=== PATIENT | male | born 1995 | race Caucasian/White ===

== ENCOUNTER 2023-09-09 12:52 | Outpatient (CLI) | payer OTHER, SELFPAY ==
--- NOTE | ~2023-09-09 | US_ITS ---
EXAMINATION: US soft tissue upper back DATE: 09/09/2023 13:24 INDICATION: Localized swelling, mass or lump at the left upper back medial to the scapula TECHNIQUE: Multiple grayscale and Doppler ultrasound images of the region of concern at the superomed ial posterior left chest wall were obtained. COMPARISON: None FINDINGS: No discrete masses or fluid collections are visualized on the provided imaging. On real-time imaging there is a clearly discernible asymmetry with increased prominence of the subcutaneous tissues at the region of concern. A clearly defined distinction between a suspected mass in the surrounding soft ti ssues however was unable be identified. IMPRESSION: 1. No definitive correlate identified for the clearly discernible masslike increased prominence of th e subcutaneous tissues at the superomedial posterior left chest wall. Would recommend further evaluat ion with either CT or pre and postcontrast MRI. Reviewed, dictated and finalized at location B. IMPRESSION: 1. No definitive correlate identified for the clearly discernible masslike incr eased prominence of the subcutaneous tissues at the superomedial posterior left chest wall. Would recommend further evaluation with either CT or pre and postc ontrast MRI.
== END 2023-09-09 12:53 ==
LOC: MICIMG 12:53
PROVIDERS: PCP Surgery; Visit Provider Surgery
DX: R22.2 Localized swelling, mass and lump, trunk (principal)
CPT/HCPCS: 76604

== ENCOUNTER 2023-10-07 15:08 | Outpatient (CLI) | payer OTHER, SELFPAY ==
--- NOTE | ~2023-10-07 | CT_ITS ---
EXAMINATION: CT soft tissue neck wo con DATE: 10/07/2023 15:31 INDICATION: Left upper back mass near the medial scapula and base of the neck TECHNIQUE: Computed tomography (CT) of the neck was performed with 75 mL Omnipaque-350 intravenous co ntrast. Automated exposure control and iterative reconstruction technique were employed. The dose-subha gth product was 627.33 mGy-cm. COMPARISON: None FINDINGS: There is a large macroscopic fat attenuation mass at the left posterior neck and upper back which ritesh ears centered in the fascial plane between the left trapezius and levator scapulae muscles consistent with a lipoma. The lipoma measures 19.7 cm craniocaudally, 12.0 cm anteroposteriorly and 13.5 cm med ial to lateral. The mass stretches and posteriorly bulges the more superficial trapezius muscle. Ther e is also anterior protrusion of the mass at the base of the neck which extends to within 1.3 cm of t he posterior margin of the left clavicle. There are few vessels and nearly indiscernible septations s cattered throughout the lipoma. No other discrete nonadipose soft tissue component appreciated to sug gest malignancy. No other abnormal masses or fluid collections identified. Submandibular and parotid glands are symmet quang. Thyroid gland is unremarkable. There are scattered normal-sized lymph nodes in the neck, no lymp hadenopathy. Orbits are normal. Mild mucosal thickening in the right maxillary sinus with small muco us retention cyst at the left maxillary sinus. Middle ear cavities and visualized portions of the mas toid air cells are clear. Airway is unremarkable. Superior mediastinum is unremarkable. Lung apices a re normal. IMPRESSION: 1. Mass of concern corresponds to a 19.7 x 12.0 x 13.5 cm lipoma positioned between the left trapeziu s and levator scapulae muscles. Reviewed, dictated and finalized at location A. IMPRESSION: 1. Mass of concern corresponds to a 19.7 x 12.0 x 13.5 cm lipoma positioned bet ween the left trapezius and levator scapulae muscles.
== END 2023-10-07 15:09 | disposition home or self-care (01) ==
PROVIDERS: PCP Surgery; Visit Provider Surgery
DX: R22.2 Localized swelling, mass and lump, trunk (principal)
CPT/HCPCS: 70490

== ENCOUNTER 2023-10-20 01:17 | Day surgery (SDC) | payer OTHER, SELFPAY ==
[2023-10-14 10:47] VITALS: BMI 32.2
--- NOTE | 2023-10-14 10:55 | PC.NURSE ---
Report to the Outpatient Waiting Room, entrance under the green pavilion located off [facility], at time 0700 on date 10/20/23. Planned Procedure Time: 0900. Time changes happen often and if your time is changed the preop area will call you the afternoon before. - You and your visitor will be asked to self-screen and do not enter if you have any COVID symptoms. - A mask is optional within the hospital at this time. Patients may have clear liquids (water, carbonated beverages, clear teas, apple juice) until 3 hours prior to surgery with a maximum of 20 ounces. - No food from midnight until time of surgery Take the following medications with a SIP of water the morning of surgery: N/A DO NOT STOP ANY OF YOUR OTHER PRESCRIPTION MEDICATIONS PRIOR TO SURGERY ?EXCEPT THE FOLLOWING Medications to discontinue per physician: N/A Date to take last dose: N/A Please no make-up, nail tajik, hairspray, perfume, deodorant, or body powder the day of surgery. No jewelry (including any body piercings) or valuables the day of surgery, leave them at home. Please take a shower or bath the night before, or the morning of, surgery with an antibacterial soap. Wear comfortable, loose fitting clothing. - Jewelry must be removed prior to entering the operating room. Rings and piercings that are not removed may be cut off. - The hospital will not accept responsibility for valuables. - Please leave all valuables, including medications, at home the day of surgery. If you are going home after surgery, a licensed sales route driver helper must drive you home. - NO public transportation without another adult if you receive anesthesia. - We recommend that an adult stay with you for 24 hours following discharge. - We also recommend that you do not drive, make important decision, drink alcoholic beverages, or take any drugs that were not prescribed by your health care provider for at least 24 hours after your discharge time. Follow any additional instructions given to you from your surgeon. If you or anyone in your household have experienced Covid symptoms in the past week, please notify your surgeon or the nurse liaison at the phone number below for possible testing. Telephone instructions given to PT - CORINA and asked if any additional questions and then verbalized understanding. Patient advised to call surgeon office or pre surgery nurse liaison [phone] if any additional questions.
[2023-10-20] VITALS (9 sets, daily range): BP systolic 107–136; BP diastolic 56–89; PULSE 55–79; RESP 13–24; TEMP 36.1–36.9; O2SAT 95–100; BMI 32.8
--- NOTE | 2023-10-20 07:38 | PM.IMHP ---
H&P: HPI History of Present Illness Date/Time: 10/20/23 07:38 Chief Complaint: L upper back mass Narrative: Brad is a 28 y/o male who presents at the request of Aaron Ahmadi DO for an evaluation of a cyst. Patient first noticed a lump approximately 2 weeks ago. He states he thought he had an injury from falling while on vacation. Denies any associated pain. Patient does report he believes it has increased in size in the last week. Patient reports a normal range of motion in shoulder and arm. CT of area shows 20 x 12 x 13.5 cm mass c/w large lipoma. Review of Systems Review of Systems: All systems reviewed & are unremarkable except as noted in HPI and below PMFSH Family History Family History Mother Throat cancer Social History Social History Smoking status: Never smoker Second hand tobacco smoke exposure: No Alcohol intake: current Alcohol use details: BINGE DRINKING - BEER, ALMOST FUNCTIONING ALCOHOLIC, BUT NOT QUITE TO THAT POINT Substance use: never Substance use type: does not use Lack of Transportation: No Lack of Food: Never True Current Housing: I Have Housing Concerned About Future Housing: No Difficulty Paying Gas/Electric Bills: No Difficulty Paying for Meds: No Currently Unemployed: No Education: High School Diploma/GED Difficulty w/ Childcare or Family Care: No Living arrangements: with family Occupation/Education: occupation Additional occupation/education comments: Telephone Lineman Spiritual care concerns: No Meds Home Medications and Allergies Home Medications Medication Instructions Recorded Confirmed Type No Home Medications 06/01/22 10/14/23 History Allergies Allergy/AdvReac Type Severity Reaction Status Date / Time No Known Allergies Allergy Mild Verified 10/14/23 10:47 Exam Const: General: cooperative, comfortable and no acute distress Resp: Auscultation: clear to auscultation bilaterally Cardio: Rate: regular rate Rhythm: regular rhythm GI: Inspection: normal to inspection Skin: Other: large L upper back mass Assessment and Plan Assessment and plan (1) Mass on back: Code(s): R22.2 - Localized swelling, mass and lump, trunk Status: Acute Assessment and Plan: imaging reviewed, will setup for excisional bx
--- NOTE | 2023-10-20 07:41 | WPDHPUPDATE1 ---
History and Physical Update Update Date/Time: 10/20/23 07:41 History and Physical has been reviewed, including an updated exam of the patient. There are NO changes in the patient's condition. Risks, benefits, and alternatives have been discussed and questions answered. Patient agrees to proceed with procedure.
--- NOTE | 2023-10-20 08:35 | WPDANESEPPF ---
Anes - Initial Pre Proc Eval Procedure: Operation Date: 10/20/23 09:00 Proposed Procedures p Excisional Biopsy of Left Upper Back Mass - Antoinette Castillo MD Date/Time: 10/20/23 08:35 Surgeon: Antoinette Castillo MD Pre Op Diagnosis: left upper back mass Patient Data Age: 28 Gender: M Height: 1.78 m Weight: 104 kg Last Vital Signs Temp 98.4 F 10/20/23 07:15 Pulse 55 L 10/20/23 07:15 Resp 18 10/20/23 07:15 BP 133/74 10/20/23 07:15 Pulse Ox 100 10/20/23 07:15 O2 Del Method Room Air 10/20/23 07:15 Allergies Allergy/AdvReac Type Severity Reaction Status Date / Time No Known Allergies Allergy Mild Verified 10/20/23 08:14 Home Medications Medication Instructions Recorded Confirmed Type No Home Medications 06/01/22 10/14/23 History Patient hx anesthesia problems: none Family hx anesthesia problems: none Results Review: All pre-operative results and documents have been reviewed as part of the pre-operative evaluation. PMFSH Family History Family History Mother Throat cancer Social History Social History Smoking status: Never smoker Second hand tobacco smoke exposure: No Alcohol intake: current Alcohol use details: BINGE DRINKING - BEER, ALMOST FUNCTIONING ALCOHOLIC, BUT NOT QUITE TO THAT POINT Substance use: never Substance use type: does not use Lack of Transportation: No Lack of Food: Never True Current Housing: I Have Housing Concerned About Future Housing: No Difficulty Paying Gas/Electric Bills: No Difficulty Paying for Meds: No Currently Unemployed: No Education: High School Diploma/GED Difficulty w/ Childcare or Family Care: No Living arrangements: with family Occupation/Education: occupation 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 Informed Consent: The patient's anesthetic plan and its attendant risks and benefits were discussed with the patient/family/POA. Questions were solicited and answers provided to the satisfaction of the patient/family/POA.
[2023-10-20] MEDS: ceFAZolin 2 GM/D5W 50 ML 2 GM/50 ML BAG IVPB (08:58)
[2023-10-20] MEDS: BUPIVACAINE/EPINEPHRINE 0.5% 50 ML VIAL 30 ML INFILTRATE (09:21)
[2023-10-20] MEDS: LACTATED RINGERS 1,000 ML 30 ML IV CONT ×2 (10:00→11:27)
--- NOTE | 2023-10-20 10:17 | W.PM.PROC2 ---
Procedure Note - Detailed Date of Procedure 10/20/23 Pre-op Diagnosis left upper back mass Post-op Diagnosis Other ( Left upper back mass submuscular) Procedure Performed excisional biopsy left upper back submuscular mass measuring 25 x 20 cm Surgeon Antoinette Castillo MD Anesthesia General and Local Indications 28-year-old male with a large left upper back mass over the last few months. Imaging consistent with large lipoma. Findings Submuscular mass consistent with multi lobular lipoma, well encapsulated Description of Procedure The patient was taken the operating room and placed in lateral position. After adequate induction of general anesthesia, the patient was prepped and draped in the normal sterile fashion. A time-out was then done to verify the patient's identity, as well as the procedure being performed. I began by localizing the area in and around this large mass in the left upper back, posterior neck area. I then made an incision over this mass. This was taken through the dermis and into the subcutaneous tissue. At this point, the mass was noted to be posterior to the trapezius muscle. The trapezius muscle was split in the direction of its fibers to gain access to this mass. A well encapsulated, large multi lobular lipoma was encountered at this point. This lipoma was noted to extend under the scapula and inferiorly down to the mid back. Using very careful blunt and sharp dissection, I was able to slowly free and excise this mass. Once completely excised, a well encapsulated multi lobular lipoma was noted. This measured 25 x 20 cm. It will be sent to pathology for further review. The cavity was examined and no other pathology was noted. I copiously irrigated the cavity and further local anesthetic was placed. Hemostasis was noted within the cavity. Given the extensive and deep cavity, a 10 Cypriot MARKEL drain was left in the submuscular cavity. I then closed the fascia with 0 Vicryl suture. The subcutaneous tissue was closed with 3-0 Vicryl suture. The skin was closed with 4-0 Monocryl subcuticular suture. The patient tolerated the procedure well and was extubated postoperatively. He will be sent to the recovery room in stable condition. Estimated Blood Loss 20 Drains Yes Packing No Pathology Yes Complications No immediate complications Condition Stable Disposition PACU [facility] Billing Surgery - Charge Forward: Surgery Billing
== END 2023-10-20 12:29 | disposition home or self-care (01) ==
PROVIDERS: PCP Physician Assistant; Visit Provider Surgery
PROC: (CPT 21933; principal; 2023-10-20 09:00)
DX: D17.1 Benign lipomatous neoplasm of skin and subcutaneous tissue of trunk (principal); E66.9 Obesity, unspecified; Z68.32 Body mass index [BMI] 32.0-32.9, adult
CPT/HCPCS: 21933; 88304; J0690; J1100; J2250; J2405; J2704; J3010; J7120